=== PATIENT | male | born 1975 | race Two or more races ===

== ENCOUNTER → 2022-04-29 | Emergency (ER) | payer BC, OTHER ==
[~2022-04-29] VITALS: Ht 177.8 cm; Wt 90.0 kg
[~2022-04-29] MED LIST: HYDR-3972 PO; HYDR50TA4 PO; HYDROcodone/acetaminophen 10/325mg tab PO ONE; NAPR-1154 PO; ONDA4TAB12 PO; ORPH100T2 PO; ondansetron 4mg rapidly disintigrating tab PO ONE; orphenadrine citrate 60mg/2ml inj. IM ONE
[2022-04-29 18:15] VITALS: BP 137/75
== END | disposition home or self-care (01) ==
LOC: ER 16:02
DX: M54.42 Lumbago with sciatica, left side (principal); M54.16 Radiculopathy, lumbar region; F15.10 Other stimulant abuse, uncomplicated; I10 Essential (primary) hypertension; Z79.899 Other long term (current) drug therapy; Z79.1 Long term (current) use of non-steroidal anti-inflammatories (NSAID)
CPT/HCPCS: 96372; 99283; J2360

== ENCOUNTER 2024-02-01 17:17 | Emergency (ER) | payer BC, OTHER ==
[~2024-02-01] VITALS: Ht 177.8 cm; Wt 87.5 kg
[~2024-02-01 17:17] MED LIST changes: -HYDR-3972 PO; -HYDROcodone/acetaminophen 10/325mg tab PO ONE; +ONDA-243 PO; -ONDA4TAB12 PO; -ORPH100T2 PO; +ORPH100T4 PO; -ondansetron 4mg rapidly disintigrating tab PO ONE; -orphenadrine citrate 60mg/2ml inj. IM ONE
[2024-02-01 17:18] VITALS: BP 114/76; PULSE 73; O2SAT 93
[2024-02-01] MEDS: TETanus/Pertussis (Acell)/Diphther VAC/PF (Tdap-Adult) 0.5ml syringe IMVAC ONE (18:17)
[2024-02-01 18:24] VITALS: RESP 14
[2024-02-01 18:53] VITALS: TEMP 98.2
== END 2024-02-01 18:54 | disposition home or self-care (01) ==
LOC: ER 17:17
DX: S01.01XA Laceration without foreign body of scalp, initial encounter (principal); S09.8XXA Other specified injuries of head, initial encounter; I10 Essential (primary) hypertension; F15.90 Other stimulant use, unspecified, uncomplicated; Z72.89 Other problems related to lifestyle; Z79.899 Other long term (current) drug therapy; X58.XXXA Exposure to other specified factors, initial encounter; Y93.89 Activity, other specified; Y92.89 Other specified places as the place of occurrence of the external cause; Y99.8 Other external cause status
CPT/HCPCS: 12001; 70450; 90471; 90715; 99285; A6449

== ENCOUNTER 2024-02-08 16:53 | Emergency (ER) | payer OTHER ==
[~2024-02-08] VITALS: Ht 177.8 cm; Wt 89.7 kg
[2024-02-08 17:04] VITALS: BP 122/80; PULSE 78; O2SAT 96
[2024-02-08 18:14] VITALS: RESP 14; TEMP 97.8
== END 2024-02-08 18:16 | disposition home or self-care (01) ==
LOC: ER 16:54
DX: S01.01XD Laceration without foreign body of scalp, subsequent encounter (principal); I10 Essential (primary) hypertension; F15.90 Other stimulant use, unspecified, uncomplicated; Z88.6 Allergy status to analgesic agent; Z79.899 Other long term (current) drug therapy; Z72.89 Other problems related to lifestyle; X58.XXXD Exposure to other specified factors, subsequent encounter
CPT/HCPCS: 99281